=== PATIENT | female | born 1975 | race Caucasian/White ===

== ENCOUNTER → 2023-08-10 | Outpatient (CLI) | payer OTHER ==
[~2023-08-10] MED LIST: ALBU90OI INH; ALPR.25 PO; ALPR.5; AMOCLA875 PO; AMOX500 PO; ATEN25 PO; AZIT250 PO; Ativan1 MG PO; BENTYL10 MG PO; BENTYL20 MG PO; BENZ100A PO; BUSP10 PO; CEPH500 PO; CIPR500 PO; CITA20; CLAR500 PO; CLIN300 PO; CLON.5; CODGUAEL PO; CYCL10 PO; DOXY100 PO; ERGO50000; ERGO50000 PO; ESCI10 PO; ESCI20; ESCI20 PO; ESOM20; FAMO20 PO; FAMO40 PO; FISH1000 PO; FURO20 PO; FURO40 PO; FURO80 PO; Flagyl500 MG PO; GUAI600T33 PO; HCTZ; HYDACE5 PO; HYDGUAL120 PO; HYDR1TAB94 PO; IBUHYD PO; LORA1 PO; LORA2 PO; MAGCIT300 PO; MAGIC MOUTHWASH; META800 PO; METCAR500 PO; METO50 PO; METR250; METR500 PO; MULVITMIND PO; NAPR500 PO; NAPR500EC PO; Norco 5-325 Ta1 EACH PO; OMEP20ER PO; OMEP40CA12 PO; ONDA4 PO; ONDA8 PO; OXYACE5T PO; PANT20 PO; PANT40 PO; PENVK500 PO; POTCHL20ER PO; PRED10 PO; PRED20 PO; PREVPAC; PREVPAC PO; PROM25 PO; Percocet 5-3251 EACH PO; Prilosec20 MG PO; Protonix40 MG PO; RANI150 PO; RXHYDGUAS PO; RXLORA1 PO; RXMETA800 PO; SUCR1 PO; SUCR1SU PO; SULF10OPSA OU; SULTRIDS PO; SULTRISS PO; TRAM50 PO; VITAMIN D34000 UNIT PO; VITAMIN D50000 UNIT PO
[2023-08-10 19:28] LABS: Follicle Stimulating Hormone 16.8 mIU/ml; Thyroid Stimulating Hormone 2.55 uIU/mL (0.360-4.800); Triiodothyronine, Free 2.49 pg/mL (2.18-3.98)
[2023-08-13 06:29] LABS: LUTEINIZING HORMONE 10.1 IU/L
== END | disposition home or self-care (01) ==
LOC: LAB SHORT 16:10 → LAB 16:10
PROVIDERS: Registered Nurse Community Health
DX: N91.2 Amenorrhea, unspecified (principal); E66.01 Morbid (severe) obesity due to excess calories; Z68.43 Body mass index [BMI] 50.0-59.9, adult
CPT/HCPCS: 83001; 83002; 84439; 84443; 84481